=== PATIENT | female | born 1990 | race Two or more races ===

== ENCOUNTER 2019-02-25 08:30 | Emergency (ER) | payer OTHER ==
[~2019-02-25] VITALS: Ht 172.7 cm; Wt 72.6 kg
[2019-02-25] MEDS ORDERED: IV NORMAL SALINE 1000ML BAG 1,000 ML IV SCH (08:46)
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
[2019-02-25 08:58] LABS: BILIRUBIN,URINE NEGATIVE (NEG); CLARITY,URINE CLOUDY; COLOR,URINE YELLOW; NITRITE,URINE NEGATIVE (NEG); PH,URINE 8.5; PROTEIN,URINE NEGATIVE (NEG-TRACE); UROBILINOGEN,URINE 0.2 mg/dL (0.2 mg/dL)
[2019-02-25] MEDS ORDERED: KETOROLAC 30 MG/ML VIAL. IV ONE (09:00)
[2019-02-25] MEDS ORDERED: IOHEXOL 300 MG/ML 100ML VIAL. IV ONE ×2 (09:00)
[2019-02-25] MEDS ORDERED: ONDANSETRON PF 4 MG/2 ML VIAL. IV ONE (09:00)
[2019-02-25 09:04] LABS: BARBITURATES NEG (NEG); BENZODIAZEPINES NEG (NEG); CANNABINOIDS NEG (NEG); COCAINE NEG (NEG); METHADONE NEG (NEG); OPIATES NEG (NEG); PHENCYCLIDINE NEG (NEG)
[2019-02-25 09:05] LABS: AMORPHOUS SEDIMENT,UR PRESENT /HPF; BACTERIA,URINE 0 /HPF (0-FEW); RBC,URINE 0 /HPF (0-2); SQUAMOUS EPITHELIAL CELL,UR OCC /LPF; WBC,URINE 0 /HPF (0-4)
[2019-02-25 09:06] LABS: AMPHETAMINE/METHAMPHETAMINE NEG (NEG)
[2019-02-25] MEDS ORDERED: CONTRAST GIVEN. MC PRN (09:15)
[2019-02-25 09:17] LABS: BASO % 1 % (0-3); EOS % 0 % (0-3); HEMOGLOBIN 13.1 g/dL (12.0-15.5); LYMPH # 1.2 x10^3/uL (1.0-4.8); LYMPH % 37 % (24-48); MEAN CORPUSCULAR HEMOGLOBIN 31 pg (25-35); MEAN CORPUSCULAR HGB CONC 34 g/dL (31-37); MEAN CORPUSCULAR VOLUME 92 fL (79-100); MONO # 0.4 x10^3/uL (0.0-1.1); MONO % 12 % (0-9); NEUT # 1.6 x10^3uL (1.8-7.7); NEUT % 51 % (31-73); PLATELET COUNT 180 x10^3/uL (140-400); RED BLOOD COUNT 4.26 x10^6/uL (3.50-5.40); RED CELL DISTRIBUTION WIDTH 12.3 % (11.5-14.5); WHITE BLOOD COUNT 3.2 x10^3/uL (4.0-11.0)
[2019-02-25 09:25] LABS: CALCIUM 8.7 mg/dL (8.5-10.1); CREATININE 0.7 mg/dL (0.6-1.0); GFR 98.9; POTASSIUM 3.7 mmol/L (3.5-5.1)
[2019-02-25 09:30] LABS: PROTHROMBIN TIME PATIENT 13.7 SEC (11.7-14.0)
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
[2019-02-25] MEDS ORDERED: IBUP-1007 PO (10:20)
[2019-02-25] MEDS ORDERED: CYCL10TA2 PO (10:20)
[2019-02-25 10:28] VITALS: BP 125/82
== END 2019-02-25 10:36 | disposition home or self-care (01) ==
LOC: ER 08:30
DX: R51 Headache (principal); R10.9 Unspecified abdominal pain; V43.52XA Car driver injured in collision with other type car in traffic accident, initial encounter; Y93.89 Activity, other specified; Y92.410 Unspecified street and highway as the place of occurrence of the external cause; Y99.8 Other external cause status
CPT/HCPCS: 36415; 70450; 72125; 74177; 80048; 80307; 81001; 81025; 85025; 85610; 85730; 96374; 96375; 99285; G0480; J1885; J2405; J7030; Q9967